=== PATIENT | female | born 1990 | race Caucasian/White ===

== ENCOUNTER 2017-06-21 20:07 | Emergency (ER) | payer OTHER ==
[~2017-06-21 20:07] MED LIST: AMOXICILLIN500 M1 PO; CLARITHROMYCIN500 M1 PO; NORCO1 TA2 PO; PRILOSEC40 MG PO
[2017-06-21 22:42] LABS: BASOPHIL % 0.3 % (0-2); PLATELET COUNT 303 x10^3mcL (130-400); RED CELL DISTRIBUTION WIDTH 14.3 % (11.5-14.5)
[2017-06-21 22:44] LABS: UA SPECIFIC GRAVITY 1.025 (1.005-1.035); microscopic required? YES; urine erythrocyte 3+ (NEGATIVE)
[2017-06-22 02:48] VITALS: BP 102/52
== END 2017-06-22 02:48 | disposition home or self-care (01) ==
LOC: ED 20:07
PROVIDERS: Emergency Medicine
DX: O23.41 Unspecified infection of urinary tract in pregnancy, first trimester (principal); Z3A.01 Less than 8 weeks gestation of pregnancy
CPT/HCPCS: 36415